=== PATIENT | female | born 1955 | race Caucasian/White ===

== ENCOUNTER → 2020-07-03 | Outpatient (CLI) | payer OTHER ==
[~2020-07-03] MED LIST: BUPR75TA6 PO; CALCIUM CITRATE PO; CETI1TAB6 PO; CHOL10003 PO; CYCL-259 PO; DICY10AM2 PO; ESTRACE VG; FLUT9.9S NAS; GLUC1TAB55 PO; IBAN150T15 PO; LYSINE PO; METH454P PO; POLY119P4 PO; Z QUILL; ZINC50TA10 PO; [UNRECOGNIZED DRUG - OTHER] PO; [UNRECOGNIZED DRUG - OTHER] PO
== END | disposition home or self-care (01) ==
LOC: STAR 10:07
PROVIDERS: ATTEND Orthopaedic Surgery
DX: Z01.812 Encounter for preprocedural laboratory examination (principal); Z20.828 Contact with and (suspected) exposure to other viral communicable diseases; M13.871 Other specified arthritis, right ankle and foot; M12.871 Other specific arthropathies, not elsewhere classified, right ankle and foot
CPT/HCPCS: 87635; 93005

== ENCOUNTER 2020-07-07 06:11 | Inpatient (IN) | payer OTHER ==
[~2020-07-07] VITALS: Ht 165.1 cm; Wt 69.0 kg
[2020-07-07] MEDS ORDERED: MIDAZOLAM 1 MG/ML, 2ML ONE (08:29)
[2020-07-07] MEDS ORDERED: FENTANYL PF 250 MCG/5ML ONE (08:29)
[2020-07-07] MEDS ORDERED: LIDOCAINE-MPF 2% ,5ML ONE ×3 (08:30→11:33)
[2020-07-07] MEDS ORDERED: LACTATED RINGERS 1,000 ML IV SCH (08:44)
[2020-07-07] MEDS ORDERED: CHLORHEXIDINE 15 ML UDC MM STA (08:44)
[2020-07-07 08:58] VITALS: BP 105/72
[2020-07-07] MEDS ORDERED: LIDOCAINE/PF 1%, 30ML ONE (10:00)
[2020-07-07] MEDS ORDERED: BUPIVACAINE/PF 0.5% ONE ×3 (10:00→11:36)
[2020-07-07] MEDS ORDERED: TRANEXAMIC ACID 100 MG/ML, 10ML ONE (10:00)
[2020-07-07] MEDS ORDERED: PROPOFOL 50 ML ONE ×2 (10:31→12:05)
[2020-07-07] MEDS ORDERED: ROPIvacaine/PF 0.2%, 100ML 550 ML (check volume) INJ ONE (11:00)
[2020-07-07] MEDS ORDERED: ONDANSETRON 2MG/ML, 2ML ONE (11:28)
[2020-07-07] MEDS ORDERED: PROPOFOL 10 MG/ML, 20ML ONE (11:28)
[2020-07-07] MEDS ORDERED: DEXAMETHASONE 4 MG/ML, 1ML ONE (11:28)
[2020-07-07] MEDS ORDERED: CEFAZOLIN 1,000 MG ONE (11:28)
[2020-07-07] MEDS ORDERED: BUPIVACAINE/PF 0.25% ONE (11:28)
[2020-07-07] MEDS ORDERED: MEPERIDINE/PF 25MG/0.5ML IVPush PRN (11:30)
[2020-07-07] MEDS ORDERED: ACETAMINOPHEN 325 MG TABLET PO PRN (11:30)
[2020-07-07] MEDS ORDERED: OXYcodone 5 MG/5 ML ORAL.SOL UDC PO PRN (11:30)
[2020-07-07] MEDS ORDERED: FENTANYL PF 100 MCG/2ML IV PRN (11:30)
[2020-07-07] MEDS ORDERED: PROMETHAZINE 25 MG/ML, 1ML IVPush PRN (11:30)
[2020-07-07] MEDS ORDERED: LORazepam 2 MG/ML, 1ML IVPush PRN (11:30)
[2020-07-07] MEDS ORDERED: HYDROmorphone 1 MG/ML, 1ML INJ IVPush PRN (11:30)
== END 2020-07-07 18:20 | disposition home or self-care (01) | DRG 469 ==
LOC: ORIP 08:28
PROVIDERS: ADMIT Orthopaedic Surgery; ATTEND Orthopaedic Surgery
PROC: 0LSN0ZZ Reposition Right Lower Leg Tendon, Open Approach (ICD-10-PCS; 2020-07-07)
PROC: 0SGM0KZ Fusion of Right Metatarsal-Phalangeal Joint with Nonautologous Tissue Substitute, Open Approach (ICD-10-PCS; 2020-07-07)
PROC: 0SRF0JZ Replacement of Right Ankle Joint with Synthetic Substitute, Open Approach (ICD-10-PCS; principal; 2020-07-07 10:30)
DX: M19.071 Primary osteoarthritis, right ankle and foot (principal); M21.40 Flat foot [pes planus] (acquired), unspecified foot; M24.50 Contracture, unspecified joint; M77.41 Metatarsalgia, right foot; Z88.2 Allergy status to sulfonamides; Z88.8 Allergy status to other drugs, medicaments and biological substances
CPT/HCPCS: 73600; 73630; 73650; 76000; J3490; S0020; 87070; 87075; 87205; 88305; 88311; C1713; J0690; J1100; J2250; J2405; J2550; J2704; J3010; C1776; J7120